=== PATIENT | male | born 1945 | race Caucasian/White ===

== ENCOUNTER 2023-10-21 09:32 | Emergency (ER) | payer OTHER, SELFPAY ==
[2023-10-21 09:56] VITALS: BP 103/61
[2023-10-21 10:24] VITALS: BMI 21.8
[2023-10-21 10:28] VITALS: BP 101/71
[2023-10-21 10:50] LABS: % Basophils 0.3 % (0-2); % Eosinophils 0.1 % (0-6); % Immature Granulocytes 0.6 % (0-0.5); % Lymphocytes 7.2 % (20.5-51.1); % Monocytes 9.4 % (1.7-9.3); % Neutrophils 82.4 % (42.2-75.2); Absolute Basophils 0.1 10^3/uL (0-0.2); Absolute Immature Granulocytes 0.1 10^3/uL (0-0.05); Absolute Lymphocytes 1.2 10^3/uL (1.2-3.4); Absolute Monocytes 1.6 10^3/uL (0.1-0.6); Absolute Neutrophils 13.6 10^3/uL (1.4-6.5); Hematocrit 38.7 % (39.0-52.0); Hemoglobin 13.1 g/dL (13.0-18.0); Mean Corp Hgb Conc. 33.9 g/dL (33.0-37.0); Mean Corpuscular Hgb 28.4 pg (27.0-31.0); Mean Corpuscular Volume 83.9 fL (80.0-94.0); Mean Platelet Volume 9.1 fL (7.4-10.4); Nucleated Red Blood Cells % 0 % (-); Platelet Count 202 10^3/uL (130-400); Red Blood Cell Count 4.61 10^6/uL (4.70-6.10); Red Cell Dist. Width 12.6 % (11.5-14.5); White Blood Cell Count 16.5 10^3/uL (4.8-10.8)
[2023-10-21 11:00] VITALS: BP 107/68
[2023-10-21 11:00] LABS: ALT (SGPT) 23 U/L (0-50); AST (SGOT) 32 U/L (17-59); Alkaline Phosphatase 91 U/L (38-126); Blood Urea Nitrogen 20 mg/dl (9-20); Calcium 8.9 mg/dl (8.4-10.2); Carbon Dioxide 23 mmol/L (22-30); Chloride 102 mmol/L (98-107); Estimated Creatinine Clearance 51 ml/min; Glucose 161 mg/dl (70-99); Sodium 133 mmol/L (135-145); Total Bilirubin 2.1 mg/dl (0.2-1.3); Total Protein 7.2 g/dl (6.3-8.2); eGFR > 60.00
[2023-10-21 11:01] LABS: COVID-19 Antigen Negative (Negative)
[2023-10-21] MEDS: DUONEB 3 ML INH (11:18)
[2023-10-21 12:00] VITALS: BP 96/59
--- NOTE | 2023-10-21 12:06 | ED.GENMED ---
History of Present Illness
General
Chief Complaint: Cough
Source: patient and spouse
Exam Limitations: none
Time Seen by Provider: 10/21/23 10:09
Nursing documentation reviewed up to this point in time: agreed with
Travel History
Have you had any contact with someone who has COVID-19?: No
Do you have any symptoms of coronavirus? Fever > 100 degrees, chills, cough, shortness of breath, sore throat, loss of taste or smell, muscle aches, or headache?: No
History of Present Illness
History of Present Illness:
78-year-old male with a past medical history of COPD who presents to the emergency department accompanied by his for evaluation of cough and shortness of breath. Patient reports he has had a chronic cough since diagnosis of COPD for 5 years
ago. He says that over the past week or so he has noticed an acute worsening of his symptoms. He says that he has a hacking cough productive of sputum. He reports increasing shortness of breath. He says that he has been using his inhaler without
significant relief recently and so he came to the emergency to be assessed. He says he had similar symptoms with pneumonia in the past. He has not noted any fever or chills. Denies any significant chest pain. Denies any other complaints today.
Review of Systems
Review of Systems
All Other Systems: ROS reviewed and negative except as documented in HPI and ROS
Constitutional: Denies fever or chills
EENT: Denies sore throat
Respiratory: Reports cough and trouble breathing
Cardiac: Denies chest pain or palpitations
ABD/GI: Denies abdominal pain, nausea or vomiting
: Denies flank pain
Musculoskeletal: Denies neck pain or back pain
Neurological: Denies headache
Phy Exam
Physical Exam
Physical Exam:
General: Awake, alert; no acute distress
Head: Normocephalic, atraumatic
Eyes: Conjunctiva normal, sclera anicteric
Throat: Airway intact, handling secretions
Neck: Trachea midline, no JVD
Lungs: Patient has acceptable pulse ox on room air, supple respiratory rate; he has significant bilateral wheezing with frequent coughing throughout exam
Heart: Tachycardia with regular rhythm, no murmurs, gallops, or rubs
Abd: Soft, non distended, nontender
Neuro: Cranial nerves grossly intact, speech fluid
Skin: no rash
Extremities: No edema in extremities, warm and well-perfused
Scores
Heart Failure Risk
Heart Failure Risk Score: Not Applicable
Heart Score for Chest Pain Patients
STEMI patient?: Not applicable
Withdrawal Assessment of Alcohol
Withdrawal Assessment Completed?: Not applicable
Course
Orders/Labs/Results
Orders:
Orders
10/21/23 10:11
CR Chest - 2 Views Urgent
Comment:
Reason For Exam: cough
10/21/23 10:35
COVID-19 Antigen Urgent
Source: Nasal Swab
Complete Blood Count/With Diff Urgent
Comprehensive Metabolic Panel Urgent
Influenza A+B Rapid Molecular Urgent
JENIFER Source: Nasal Swab
Specimen Description:
10/21/23 10:56
Ipratropium/Albuterol Sulfate [Duoneb] 3 ml INH R NOW ONE
10/21/23 12:09
Azithromycin [Zithromax] 500 mg PO NOW STA
MethylPREDNISolone PF [Solu-Medrol Pf] 125 mg IV NOW STA
Abnormal Lab Results
10/21/23
10:35
WBC 16.5 H 10^3/uL
(4.8-10.8)
RBC 4.61 L 10^6/uL
(4.70-6.10)
Hct 38.7 L %
(39.0-52.0)
Abs Immat Gran (auto) 0.1 H 10^3/uL
(0-0.05)
Absolute Neuts (auto) 13.6 H 10^3/uL
(1.4-6.5)
Absolute Monos (auto) 1.6 H 10^3/uL
(0.1-0.6)
Immature Gran % 0.6 H %
(0-0.5)
Neutrophils % 82.4 H %
(42.2-75.2)
Lymphocytes % 7.2 L %
(20.5-51.1)
Monocytes % 9.4 H %
(1.7-9.3)
Sodium 133 L mmol/L
(135-145)
Glucose 161 H mg/dl
(70-99)
Total Bilirubin 2.1 H mg/dl
(0.2-1.3)
10/21/23 10:35
10/21/23 10:35
Vital Signs
Initial and Last Documented VS:
Initial Vital Signs
Temp Pulse Resp BP Pulse Ox
37.6 C 105 18 103/61 93
10/21/23 09:56 10/21/23 09:56 10/21/23 09:56 10/21/23 09:56 10/21/23 09:56
Last Documented Vital Signs
Temp Pulse Resp BP Pulse Ox
37.6 C 96 27 96/59 92
10/21/23 09:56 10/21/23 12:15 10/21/23 12:15 10/21/23 12:00 10/21/23 12:15
MDM/Problems Addressed
Differential Diagnosis Includes:
Pneumonia, bronchitis, COPD exacerbation
MDM/Problems Addressed:
78-year-old male presents for worsening cough and shortness of breath in setting of known COPD. Tachycardic on arrival vital signs otherwise within normal limits. Physical exam as above�has significant bilateral wheezing and frequent coughing.
Plan to place an IV will check labs including CBC and CMP; will check flu and COVID swabs. Check a chest x-ray to rule out pneumonia. Will treat with a DuoNeb and steroid as his exam is consistent with at least some component of COPD exacerbation.
Monitor closely reassess after the above.
Labs reviewed: CBC shows a leukocytosis to 16.5 of unclear clinical significance�he has no clear pneumonia on chest x-ray which I reviewed independently. He does take an inhaled steroid which could contribute. His CMP shows no clinically
significant abnormalities. COVID and flu swabs negative. Clinical reassessment still has some wheezing but improved after neb treatment here. He has an acceptable pulse ox and respiratory rate here in the emergency room. Occult pneumonia is a
consideration I think will be reasonable cover with azithromycin given his leukocytosis and productive cough however suspect more likely that this is an acute COPD exacerbation. Will start patient on a steroid course. No clear indication for
admission at this point I think it is reasonable to trial outpatient treatment to start. Patient feels comfortable with this plan. We did speak about return precautions and all questions were answered.
Chest x-ray report noted, discussed findings with patient will follow-up as an outpatient for repeat imaging.
Chronic conditions affecting care:
COPD
*Radiology
Radiology exam reviewed: preliminary read by ED provider and radiology read reviewed
*Pulse Oximetry
Patient hypoxic: no
*Critical Care Note
Total Time (30-74mins, 75-104mins- exclusive of procedures): Not Applicable
Data Reviewed
Source: patient and spouse
ED Attending Note
-
Portions of this chart may have been created with voice recognition software.� Occasional wrong word or��sound alike� substitutions may have occurred due to the inherent limitations of voice recognition software.
Discharge Plan
Departure
Patient Disposition: Home (Routine Discharge)
Date of Disposition: 10/21/23
Time of Disposition: 12:30
Patient with high blood pressure during this ER visit?: No
Discharge Problem:
COPD exacerbation
Instructions: COPD Exacerbation, Adult ED
Prescriptions:
New
prednisone 50 mg tablet
50 mg PO DAILY Qty: 4 0RF
azithromycin [Zithromax] 250 mg tablet
250 mg PO DAILY Qty: 4 0RF
albuterol sulfate 90 mcg/actuation HFA aerosol inhaler
2 puff inhalation Q4H PRN (Reason: shortness of breath or wheezing) Qty: 8.5 0RF
Referrals:
Jaron Stoddard MD [Active] - Call in 1-3 days for appt (Pulmonology)
Shantell Rubio MD [Family Provider] - Call in 1-3 days for appt
Activity Restrictions/Additional Instructions:
Thank you for visiting the Emergency Department at [facility].
1. Please schedule a follow up appointment as directed. Call first thing tomorrow morning to make an appointment.
2. If indicated, please take your medications as instructed and indicated on discharge paperwork.
3. If any of your symptoms do not improve, or persist, or become more severe within 6-12 hours, please return to the emergency department for further care.
4. Please return to the emergency department if you develop a headache, neck pain/stiffness, fever greater than 100.4F, chest pain, shortness of breath, persistent nausea, vomiting, slurred speech, difficulty walking, numbness/tingling, weakness,
signs of infection or any other symptoms that are worrisome to you.
Please call [phone] if you have any questions.
Interventions
Interventions:
*Risk Screen - Suicide Last Done: 10/21/23 10:24
*General Assessment Last Done: 10/21/23 10:24
*Neglect/Abuse Screening Last Done: 10/21/23 10:24
ED- Fall Risk Assessment Last Done: 10/21/23 10:24
*ED COVID-19 Vaccine History Last Done: 10/21/23 10:04
ED- Pulmonary Assessment Last Done: 10/21/23 10:24
[2023-10-21] MEDS: ZITHROMAX 500 MG PO (12:18)
[2023-10-21] MEDS: SOLU-MEDROL PF 125 MG IV (12:18)
== END 2023-10-21 12:48 | disposition home or self-care (01) ==
LOC: EMR 09:32
PROVIDERS: EMERGENCY PHYSICIAN Emergency Medicine; FAMILY PHYSICIAN Internal Medicine
DX: J44.1 Chronic obstructive pulmonary disease with (acute) exacerbation (principal)
CPT/HCPCS: 99283; 94640; 96374; 71046; 80053; 85025; 87502; 87811

== ENCOUNTER 2023-11-29 12:32 | Emergency (ER) | payer OTHER, SELFPAY ==
--- NOTE | 2023-11-29 13:05 | EDRN ---
Miguel Momin PA in to see pt at this time.
--- NOTE | 2023-11-29 13:15 | EDRN ---
Dr. Joya in room w/pt at this time.
--- NOTE | 2023-11-29 13:35 | ED.GENMED ---
History of Present Illness
General
Chief Complaint: Breathing Problem
Source: patient
Exam Limitations: none
Time Seen by Provider: 11/29/23 13:02
Nursing documentation reviewed up to this point in time: agreed with
Travel History
Have you had any contact with someone who has COVID-19?: No
Do you have any symptoms of coronavirus? Fever > 100 degrees, chills, cough, shortness of breath, sore throat, loss of taste or smell, muscle aches, or headache?: Yes
Symptoms:: congestion
History of Present Illness
History of Present Illness:
78-year-old male with a past medical history of COPD presents for evaluation of shortness of breath. Patient was seen a little over a month ago for identical symptoms; diagnosed with COPD exacerbation was treated with prednisone and azithromycin.
He says symptoms completely resolved and he felt symptom-free for about a month; he says about 10 days ago he started again with similar shortness of breath, coughing, nasal congestion. Came back to the emergency room for reassessment, requesting
similar treatment as it helped before. He has been using Advair inhaler twice daily with compliance also using as needed albuterol�he says that these do benefit him but that the effect is transient. He has been seen by pulmonology through
[facility] system; follows with Dr. Heard.
Review of Systems
Review of Systems
All Other Systems: ROS reviewed and negative except as documented in HPI and ROS
Constitutional: Denies fever or chills
EENT: Reports other (Nasal congestion)
Respiratory: Reports cough and trouble breathing
Cardiac: Denies chest pain or palpitations
ABD/GI: Denies abdominal pain
Musculoskeletal: Denies edema, neck pain or back pain
Neurological: Denies headache, weakness or numbness
Phy Exam
Physical Exam
Physical Exam:
General: Awake, alert, oriented x3; no acute distress
Head: Normocephalic, atraumatic
Eyes: Conjunctiva normal
Throat: Airway intact, handling secretions
Neck: Trachea midline, no JVD
Lungs: Bilateral wheezing throughout all lung tavares; normal respiratory, normal pulse ox on room air, no increased work of breathing, speaking in full sentences clear to auscultation bilaterally, no wheezing, rales, rhonchi
Heart: Regular rate and rhythm, no murmurs, gallops, or rubs
Neuro: Cranial nerves grossly intact, speech fluid, no gross motor or sensory deficits, ambulatory with steady gait
Skin: no rash
Extremities: No edema in extremities
Scores
Heart Failure Risk
Heart Failure Risk Score: Not Applicable
Heart Score for Chest Pain Patients
STEMI patient?: Not applicable
Withdrawal Assessment of Alcohol
Withdrawal Assessment Completed?: Not applicable
Course
Orders/Labs/Results
Orders:
Orders
11/29/23 13:24
Azithromycin [Zithromax] 500 mg PO NOW STA
Ipratropium/Albuterol Sulfate [Duoneb] 3 ml INH R NOW STA
Prednisone [Deltasone] 50 mg PO NOW STA
Vital Signs
Initial and Last Documented VS:
Initial Vital Signs
Temp Pulse Resp Pulse Ox
36.8 C 70 16 95
11/29/23 12:39 11/29/23 12:39 11/29/23 12:39 11/29/23 12:39
Last Documented Vital Signs
Temp Pulse Resp Pulse Ox
36.8 C 70 16 95
11/29/23 12:39 11/29/23 12:39 11/29/23 12:39 11/29/23 12:39
MDM/Problems Addressed
Differential Diagnosis Includes:
COPD exacerbation, bronchitis, pneumonia
MDM/Problems Addressed:
78-year-old male presents for evaluation of cough, shortness of breath, congestion identical to prior COPD exacerbation. Previously improved with azithromycin and prednisone. Vital signs here within acceptable range. Exam as above. Presentation
most consistent with COPD exacerbation�patient very sensitive to pollen/grass and symptoms right up again during warm weather about 2 weeks ago. He has no focal rales or rhonchi, no fever to suggest pneumonia. No clear indication for emergent
chest x-ray at this point. Will plan to treat with DuoNeb, steroid. He appears well enough to be treated on outpatient basis for this COPD exacerbation, can follow-up with primary care physician. He feels very comfortable with this plan.
Chronic conditions affecting care:
COPD
Acute Exacerbation and/or Progression of Chronic Illness:
Acute COPD exacerbation
*Pulse Oximetry
Patient hypoxic: no
*Critical Care Note
Total Time (30-74mins, 75-104mins- exclusive of procedures): Not Applicable
Data Reviewed
Source: patient
Further Testing Considered But Not Given:
Considered chest x-ray as above
ED Attending Note
-
Portions of this chart may have been created with voice recognition software.� Occasional wrong word or��sound alike� substitutions may have occurred due to the inherent limitations of voice recognition software.
Discharge Plan
Departure
Discharge Problem:
COPD exacerbation
Instructions: Exacerbation of COPD (DC)
Prescriptions:
New
azithromycin [Zithromax] 250 mg tablet
250 mg PO DAILY Qty: 4 0RF
prednisone 50 mg tablet
50 mg PO DAILY Qty: 4 0RF
No Action
prednisone 50 mg tablet
50 mg PO DAILY Qty: 4 0RF
azithromycin [Zithromax] 250 mg tablet
250 mg PO DAILY Qty: 4 0RF
albuterol sulfate 90 mcg/actuation HFA aerosol inhaler
2 puff inhalation Q4H PRN (Reason: shortness of breath or wheezing) Qty: 8.5 0RF
Activity Restrictions/Additional Instructions:
Thank you for visiting the Emergency Department at [facility].
1. Please schedule a follow up appointment as directed. Call first thing tomorrow morning to make an appointment.
2. If indicated, please take your medications as instructed and indicated on discharge paperwork.
3. If any of your symptoms do not improve, or persist, or become more severe within 6-12 hours, please return to the emergency department for further care.
4. Please return to the emergency department if you develop a headache, neck pain/stiffness, fever greater than 100.4F, chest pain, shortness of breath, persistent nausea, vomiting, slurred speech, difficulty walking, numbness/tingling, weakness,
signs of infection or any other symptoms that are worrisome to you.
Please call [phone] if you have any questions.
Interventions
Interventions:
*Risk Screen - Suicide Last Done: 11/29/23 12:39
*General Assessment Last Done: 11/29/23 12:39
*Neglect/Abuse Screening Last Done: 11/29/23 12:39
ED- Fall Risk Assessment Last Done: 11/29/23 13:37
*ED COVID-19 Vaccine History Last Done: 11/29/23 13:37
ED- Cardiac Assessment Last Done: 11/29/23 13:40
ED- Pulmonary Assessment Last Done: 11/29/23 13:40
[2023-11-29 13:38] VITALS: BP 118/78
[2023-11-29 13:41] VITALS: BMI 21.7
[2023-11-29] MEDS: ZITHROMAX 500 MG PO (13:42)
[2023-11-29] MEDS: DELTASONE 50 MG PO (13:43)
[2023-11-29] MEDS: DUONEB 3 ML INH (13:47)
== END 2023-11-29 14:12 | disposition home or self-care (01) ==
LOC: EMR 12:32
PROVIDERS: EMERGENCY PHYSICIAN Emergency Medicine; FAMILY PHYSICIAN Nurse Practitioner Gerontology
DX: J44.1 Chronic obstructive pulmonary disease with (acute) exacerbation (principal); J44.9 Chronic obstructive pulmonary disease, unspecified
CPT/HCPCS: 99283; 94640